=== PATIENT | female | born 1945 | race Caucasian/White ===

== ENCOUNTER 2021-11-22 14:33 | Outpatient (CLI) | payer MEDICARE, BC, SELFPAY ==
[2021-11-22 17:27] LABS: Albumin* 4.1 g/dL (3.3-5.0)
[2021-11-22 17:29] LABS: Cholesterol* 195 mg/dL (90-199)
[2021-11-22 17:30] LABS: Alkaline Phosphatase* 84 U/L (40-150); Aspartate Amino Transferase* 36 U/L (12-35); Bilirubin Direct* 0.1 mg/dL (0.0-0.5); Bilirubin Total* 0.6 mg/dL (0.1-1.5); HDL Cholesterol* 89 mg/dL (>=50); LDL Cholesterol Calculated 86 mg/dL (<100); Total Protein* 6.7 g/dL (6.0-8.3); Triglycerides* 101 mg/dL (40-149)
[2021-11-22 17:31] LABS: Alanine Aminotransferase* 24 U/L (4-35)
== END 2021-11-22 14:34 | disposition home or self-care (01) ==
PROVIDERS: PCP Internal Medicine; Visit Provider Internal Medicine
DX: Z00.00 Encounter for general adult medical examination without abnormal findings (principal); K76.0 Fatty (change of) liver, not elsewhere classified; E78.5 Hyperlipidemia, unspecified; E03.9 Hypothyroidism, unspecified
CPT/HCPCS: 80061; 80076; 84443

== ENCOUNTER 2022-01-08 11:09 | Outpatient (CLI) | payer MEDICARE, BC, SELFPAY | END 2022-01-08 11:10 | disposition home or self-care (01) | LOC: NFLDREF 01-11 10:11 | PROVIDERS: PCP Internal Medicine; Visit Provider Internal Medicine | DX: N39.0 Urinary tract infection, site not specified (principal) | CPT/HCPCS: 87086; 87186 ==

== ENCOUNTER 2022-03-26 12:40 | Outpatient (CLI) | payer MEDICARE, BC, SELFPAY ==
--- NOTE | 2022-03-26 12:50 | CRLHL7_ITS ---
For Patients: As a result of the Century Cures Act, medical imaging exams and procedure reports are released immediately into your electronic medical record. You may view this report before your referring provider. If you have questions, please contact your health care provider. BILATERAL SCREENING MAMMOGRAM WITH COMPUTER-AIDED DETECTION TECHNIQUE: CC and MLO views were obtained. These mammographic images have been obtained using full-field digital technique. These mammographic images were interpreted with the benefit of computer-aided detection. COMPARISON FILM: 10/16/17, 10/19/15, 09/15/14 FINDINGS: The breasts are almost entirely fatty IMPRESSION: There is no radiographic evidence for malignancy. ASSESSMENT: BI-RADS Category 1: Negative RECOMMENDATION: Routine screening mammogram in 1 year. A lay language report of this examination will be provided to the patient. Andrez Al M.D. Diagnostic/Nuclear Medicine Radiologist [email or web address] Transcribed: 2:01 p.m. DW/Dictated by: Andrez Al MD @ 03/27/2022 8:15:00 AM (Electronically Signed)
== END 2022-03-26 12:41 | disposition home or self-care (01) ==
LOC: MAMMO 12:42
PROVIDERS: PCP Internal Medicine; Visit Provider Internal Medicine
DX: Z12.31 Encounter for screening mammogram for malignant neoplasm of breast (principal)
CPT/HCPCS: 77067

== ENCOUNTER 2022-11-21 13:10 | Outpatient (CLI) | payer MEDICARE, BC, SELFPAY | END 2022-11-21 13:11 | disposition home or self-care (01) | LOC: NFLDREF 11-22 05:53 | PROVIDERS: PCP Internal Medicine; Referring Provider Internal Medicine; Visit Provider Internal Medicine | DX: E78.5 Hyperlipidemia, unspecified (principal); E03.9 Hypothyroidism, unspecified; M85.80 Other specified disorders of bone density and structure, unspecified site | CPT/HCPCS: 80061; 82306; 84443 ==

== ENCOUNTER 2024-09-10 15:56 | Outpatient (CLI) | payer BC, SELFPAY | END 2024-09-10 15:57 | disposition home or self-care (01) | PROVIDERS: PCP Internal Medicine; Visit Provider Family Medicine | DX: S39.92XA Unspecified injury of lower back, initial encounter (principal); W19.XXXA Unspecified fall, initial encounter; Y92.009 Unspecified place in unspecified non-institutional (private) residence as the place of occurrence of the external cause | CPT/HCPCS: A0425; A0433 ==

== ENCOUNTER 2024-09-10 16:39 | Emergency (ER) | payer BC, SELFPAY ==
[2024-09-10] VITALS (27 sets, daily range): BP systolic 126–149; BP diastolic 68–90; PULSE 98–115; RESP 6–30; TEMP 36.9; O2SAT 90–100; BMI 32.1
--- OUTSIDE RECORDS SUMMARY | 2024-09-10 16:41 | XMS_ITS | Clinical Summary ---
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 [facility] Allergies No known active allergies Medications atorvastatin (LIPITOR) 20 MG tablet Take 1 Tablet by mouth daily. 1 Active escitalopram oxalate (LEXAPRO) 20 MG tablet Take 1 Tablet by mouth daily. 1 Active levothyroxine (SYNTHROID) 25 MCG tablet Take 1 Tablet by mouth daily. 1 Active omeprazole (PRILOSEC) 20 MG capsule Take 1 Capsule by mouth daily. 1 Active QUEtiapine (SEROQUEL) 25 MG tablet Take 3 Tablets by mouth daily at bedtime. 1 Active traZODone (DESYREL) 50 MG tablet Take 75 mg by mouth daily at bedtime. 1 Active Coenzyme Q10 (COQ-10 OR) Take 1 Tablet by mouth daily. Active B Complex Vitamins (B COMPLEX OR) Take 1 Tablet by mouth daily. Active cholecalciferol (VITAMIN D3) 25 MCG (1000 UT) tablet Take 2,000 Units by mouth daily. Active calcium carbonate 1500 (600 Ca) MG Take 600 mg elemental Ca by mouth two times a day. Active Multiple Vitamins-Mineral s (OCUVITE OR) Take 1 Tablet by mouth daily. Active LORazepam (ATIVAN) 1 MG tabletIndication s:Abnormal involuntary movement Pt to bring with to appt. Do not take prior to arrival. MRI staff will instruct when to take med. 1 Tablet 1 Active BABY ASPIRIN OR 81 mg daily. A ctive Family History Medical History Relation Name Comments Stroke Mother Seizure Disorder Negative Family History Relation Name Status Comments Mother Social History Tobacco Use Types Packs/Day Years Used Date Smoking Tobacco: Never Smokeless Tobacco: Never Alcohol Use Standard Drinks/Week Comments Yes 2 (1 standard drink = 0.6 oz pur e alcohol) Comments Unknown Sex and Gender Information Value Date Recorded Sex Assigned at Not on file Legal Sex Female 5:56 PM CDT Gender Identity Not on file Sexual Orientation Not on file Last Filed Vital Signs Vital Sign Reading Time Taken Comments Blood Pressure 122/88 01/09/2021 3:19 PM FRONT END ASSISTANT Pulse 76 01/09/2021 3:19 PM FRONT END ASSISTANT Temperature - - Respiratory Rate 16 01/09/2021 3:19 PM FRONT END ASSISTANT Oxygen Saturation - - Inhaled Oxygen Concentration - - Weight 80.2 kg (176 lb 12.8 oz) 01/09/2021 3:19 PM FRONT END ASSISTANT Height - - Body Mass Index - - Plan of Treatment Health Maintenance Due Date Last Done Comments Medicare Annual Wellness Visit 1945 Zoster/Shingles Vaccine (1 of 2) 05/17/1993 Dexa 05/17/2008 RSV Vaccine (1 - 1-dose 75+ series) 05/17/2018 DTaP/Tdap/Td Vaccine (2 - Tdap) 04/12/2021 04/12/2011 COVID-19 Vaccine ( season) 2023 01/22/2022, 08/14/2021, 01/19/2021, Additional history exists Influenza Vaccine (#1) 2024 2, 01/19/2021, 12/03/2018, Additional history exists Pneumococcal Vaccine 50+ Yrs Completed 09/09/2014, 02/21/2010 HepA Vaccine Aged Out No longer eligi ble based on patient's age to complete this topic HepB Vaccine Aged Out No longer eligi ble based on patient's age to complete this topic Hib Vaccine Aged Out No longer eligi ble based on patient's age to complete this topic MCV4 Vaccine Aged Out No longer eligi ble based on patient's age to complete this topic Meningococcal B Vaccine Aged Out No l onger eligible based on patient's age to complete this topic Insurance MEDICARE
--- OUTSIDE RECORDS SUMMARY | 2024-09-10 16:41 | XMS_ITS | Clinical Summary ---
Author Organization [facility] Address [address] [place] [id number] Care Team Providers Care Human Services Assistant Name Role Phone Keisha Shin MD Primary Care Prov ider Allergies Active Allergy Reactions Criticality Noted Date Comments Amoxicillin Rash 06/26/2011 Ranitidine Rash 06/26/2011 Medications b complex vitamins (VITAMIN B COMPLEX) capsule Take 1 Tablet by mouth once daily. Active ubidecarenone/vitam in E mixed (COQ10 SG 100 ORAL) Take by mouth. Active mv-mn/om3/dha/epa/f loreta/lut/alirio (OCUVITE ADULT 50 PLUS ORAL) Take by mouth. Active aspirin 81 mg cap Take by mouth. Active levothyroxine (SYNTHROID) 25 mcg tabletIndications:H ypothyroidism (acquired) Take 1 Tablet (25 mcg) by mouth once daily. 90 Tablet 3 4 Active omeprazole (PRILOSEC) 20 mg Delayed-Release capsuleIndications: Chronic GERD Take 1 Capsule (20 mg) by mouth once daily before a meal. 90 Capsule 3 4 Active traZODone (DESYREL) 50 mg tabletIndications:I nsomnia, unspecified type,Recurrent major depressive disorder, in full remission Take 1 and 1/2 tablets by mouth at bedtime 135 Tablet 3 4 Active QUEtiapine (SEROQUEL) 25 mg tabletIndications:D epressive disorder TAKE 3 TABLETS BY MOUTH AT BEDTIMES 270 Tablet 1 5 Active atorvastatin (LIPITOR) 20 mg tabletIndications:H yperlipidemia, unspecified hyperlipidemia type Take 1 Tablet (20 mg) by mouth at bedtime. 90 Tablet 1 5 Active escitalopram oxalate (LEXAPRO) 20 mg tabletIndications:R ecurrent major depressive disorder, in full remission TAKE 1 TABLET BY MOUTH EVERY DAY 90 Tablet 1 5 Active Active Problems Problem Noted Date Diagnosed Date Spells of leg shaking and loss of balance 2023 Overview (11/11/2023): Seen by neurology in 2021 and suspected related to orthostatic hypotension. Had MRI with vasculature variant but no intracranial pathology. Had recommend cardiology referral as well. Age-related osteoporosis wit hout current pathological fracture 11/11/2023 Overview (11/11/2023): Dexa 10/18, repeat in 5y Colonic adenoma 11/11/2023 Overview (11/11/2023): Colonoscopy in 07/2016, repeat in 5y MAFLD (metabolic associated fatty liver disease) 11/11/2023 Hypothyroidism (acquired) 11/11/2023 Fibromyalgia 11/11/2023 History of anxiety 10/14/2017 Mixed hyperlipidemia 09/10/2013 Encounter for long-term (current) use of other m edications 01/09/2009 Depressive disorder, not elsewhere classified Unspecified psychosis 04/14/2007 Immunizations Immunization Administration Dates Next Due COVID-19 vaccine (Avidia NTExajoule 30mcg/0.3mL) PF, MDV 01/19/2021 Influenza, High-dose Inactivated 019,05/24/2016,01/20/2015,2013 Influenza, High-dose Quadriv alent Inactivated 12/03/2022,01/22/2022,01/19/2021 Influenza, IIV3 (Age 6-35 mos) 02/17/2013,2011,02/21/2010 Influenza, Inactivated IIV3 (Age 65+ Years) Preserv Free 11/11/2023 Pneumococcal Poly,23-Valent (Pneumovax) 02/21/2010 Pneumococcal conj 13-Valent (Prevnar 13) 09/09/2014 Tdap 02/12/2023,04/12/2011 Social History Tobacco Use Types Packs/Day Years Used Date Smoking Tobacco: Never Smokeless Tobacco: Never Tobacco Cessation:Counseling Given: Yes Alcohol Use Standard Drinks/Week Comments Yes 0 (1 standard drink = 0.6 oz pur e alcohol) occasionally PHQ-2 Answer Date Recorded PHQ-2 TOTAL SCORE 0 11/11/2023 Social Connections Answer Date Recorded Do you often feel lonely or isolated from those around you? 0 11/11/2023 Financial Resource Strain Answer Date R ecorded Difficulty of Paying Living Expenses 3 08/19/2023 Difficulty of Paying Living Expenses Not on file 08/19/2023 Food Insecurity Answer Date Recorded Do you worry your food will run out before you are able to buy more? 1 11/11/2023 Transportation Needs Answer Date Record ed Does lack of transportation keep you from medica l appointments? 1 11/11/2023 Does lack of transportation keep you from work, meetings or getting things that you need? 1 11/11/2023 Housing Stability Answer Date Recorded What is your housing situation today? 1 11/11/2023 Utilities Answer Date Recorded Do you have trouble paying f or utilities (for example, heat, electricity, water, phone)? 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 Gender Identity Not on file Sexual Orientation Not on file Obstetrics History Last Filed Vital Signs Vital Sign Reading Time Taken Comments Blood Pressure 127/72 11/11/2023 3:18 PM CDT Pulse 76 11/11/2023 3:18 PM CDT Temperature - - Respiratory Rate - - Oxygen Saturation 96% 11/11/2023 3:18 PM CDT Inhaled Oxygen Concentration - - Weight 80.7 kg (178 lb) 11/11/2023 3:18 PM CDT Height 153 cm (5' 0.24) 11/11/2023 3:18 PM CDT Body Mass Index 34.49 11/11/2023 3:18 PM CDT Plan of Treatment Health Maintenance Due Date Last Done Comments Zoster (shingles) series for age 50+ (1 of 2) 05/17/1993 RSV vaccine for adults or (1 - 1-dose 75+ series) 05/17/2018 COVID-19 vaccine series ( season) 2023 02/12/2023, 01/22/2022, 08/14/2021, Additional history exists Influenza Vaccine (#1) 2024 , 12/03/2018, 05/24/2016, Additional history exists BMI (ht and wt on same day) for age 18+ 11/10/2024 11/11/2023, 09/26/2021 Depression screening for age 12+ 11/10/2024 11/11/2023, 09/26/2021, 11/16/2018, Additional history exists Medicare Wellness for age 65+ 11/11/2024 11/11/2023, 10/01/2022 (Completed outside of [facility]) Tetanus booster 02/12/2033 02/12/2023, 06/02 (Completed outside of [facility]), 04/12/2011 DEXA/DXA scan for age 65+ Completed 2011 (Completed outside of [facility]) Pneumococcal series for age 50+ Completed 09/09/2014, 02/21/2010 Hepatitis B series for 19+ Aged Out N o longer eligible based on patient's age to complete this topic Insurance MEDICARE [place] ONLY MEDICARE PART A HB ONLY MEDICARE PART B HB ONLY BLUE ADVANTAGE [place] [place] Care Teams Human Services Assistant Relationship Specialty Start Date End Date Keisha Shin MD [address] [place] [address] PCP - General Family Practice 08/19/23
--- NOTE | 2024-09-10 17:09 | CRLHL7_ITS ---
For Patients: As a result of the Century Cures Act, medical imaging exams and procedure reports are released immediately into your electronic medical record. You may view this report before your referring provider. If you have questions, please contact your health care provider. INDICATION: Fall, injury. TECHNIQUE: CT lumbar spine without contrast. COMPARISON: None. FINDINGS: No acute fracture. Grade 1 anterolisthesis of L4 on L5. L1 and L2 vertebral body hemangiomas. No prevertebral soft tissue hematoma or swelling. No soft tissue abnormality is identified. Multilevel spondylosis. No acute process in the visualized portions of the abdomen. Colonic diverticulosis. IMPRESSION: No acute fracture. Please note that all CT scans at this facility use dose modulation, iterative reconstruction, and/or weight-based dosing when appropriate to reduce radiation dose to as low as reasonably achievable. Dictated by Jaret Hall MD @ 09/10/2024 6:18:31 PM (Electronically Signed)
--- NOTE | 2024-09-10 17:09 | CRLHL7_ITS ---
For Patients: As a result of the Century Cures Act, medical imaging exams and procedure reports are released immediately into your electronic medical record. You may view this report before your referring provider. If you have questions, please contact your health care provider. INDICATION: .fall and injury TECHNIQUE: Head CT without contrast. COMPARISON: None. FINDINGS: Periventricular areas of low attenuation, likely due to chronic small vessel ischemic changes. Generalized volume loss. Atherosclerosis. No intracranial hemorrhage. No discrete mass or mass effect. There is no midline shift. The basilar cisterns are patent. No hydrocephalus. The spencer-white matter interface is otherwise preserved. No acute osseous abnormality. No extracalvarial soft tissue abnormality. The mastoid air cells are clear. The paranasal sinuses are well-aerated. The visualized portions of the orbits and globes are unremarkable. IMPRESSION: No acute intracranial process per unenhanced head CT. Please note that all CT scans at this facility use dose modulation, iterative reconstruction, and/or weight-based dosing when appropriate to reduce radiation dose to as low as reasonably achievable. Dictated by Jaret Hall MD @ 09/10/2024 6:08:29 PM (Electronically Signed)
--- NOTE | 2024-09-10 17:09 | CRLHL7_ITS ---
For Patients: As a result of the Cures Act, medical imaging exams and procedure reports are released immediately into your electronic medical record. You may view this report before your referring provider. If you have questions, please contact your health care provider. Indication: fall and injury bilateral groin and hip pain Technique: July 2021 Comparison: Lumbar same day Findings: Subcentimeter sclerotic focus in the left femoral head, statistically a bone island. Lumbar spondylosis. Bony mineralization is age-appropriate. No acute displaced fracture or malalignment. Visualized portions the pelvis show no acute process. Colonic diverticulosis. Impression: No acute displaced fracture or malalignment. Please note that all CT scans at this facility use dose modulation, iterative reconstruction, and/or weight-based dosing when appropriate to reduce radiation dose to as low as reasonably achievable. Dictated by Jaret Hall MD @ 09/10/2024 6:23:33 PM (Electronically Signed)
--- NOTE | 2024-09-10 17:10 | CRLHL7_ITS ---
For Patients: As a result of the Cures Act, medical imaging exams and procedure reports are released immediately into your electronic medical record. You may view this report before your referring provider. If you have questions, please contact your health care provider. INDICATION: .fall and injury, neck pain TECHNIQUE: CT cervical spine without contrast. COMPARISON: None. FINDINGS: No acute fracture. No listhesis. Bony mineralization is age appropriate. No prevertebral soft tissue hematoma or swelling. No soft tissue abnormality is identified. Multilevel spondylosis. No pathologically enlarged lymph nodes. Thyroid is normal. Lung apices are clear. IMPRESSION: Unremarkable cervical spine CT. Please note that all CT scans at this facility use dose modulation, iterative reconstruction, and/or weight-based dosing when appropriate to reduce radiation dose to as low as reasonably achievable. Dictated by Jaret Hall MD @ 09/10/2024 6:12:53 PM (Electronically Signed)
[2024-09-10 17:31] LABS: Hematocrit 41.7 % (33.0-51.0); Hemoglobin* 14.3 gm/dL (12.0-16.0); Immature Granulocytes Abs Auto 0.01 K/uL (0.00-0.30); Immature Granulocytes Pct Auto 0.1 %; Mean Corpuscular HGB Conc 34 gm/dL (32-36); Mean Corpuscular Hemoglobin 33 pg (26-34); Mean Corpuscular Volume 95 fL (80-100); RDW Coefficient of Variation % 13.0 % (11.5-15.5); Red Blood Count 4.37 m/uL (4.00-5.20); White Blood Count* 9.11 K/uL (4.50-11.00)
[2024-09-10 17:36] LABS: Lymphocytes Absolute Auto 0.50 K/uL (0.90-2.90); Slide Review Reflex No
--- NOTE | 2024-09-10 17:37 | ED.FALL ---
HPI - Fall General Date Seen: 09/10/24 Chief Complaint: Fall/Minor Trauma Stated Complaint: Fall Time Seen by Provider: 09/10/24 16:53 Source: patient, family, EMS, RN notes reviewed and old records reviewed Mode of arrival: EMS Limitations: no limitations History of Present Illness HPI Narrative: Patient is an 79-year-old female who fell at her residence, she shares with her son at approximately 10:30 a.m. last night she was on the floor crawling around looking for the foam before she was cauda able to call 911 this afternoon, she complains of back and neck pain for EMS, and some bruising on her limbs, she was given on route here IV fentanyl 100 mcg 1.25 mg of droperidol, and 4 mg of Zofran. Says she feels pretty good rate now, she says she can not really remember what exactly happened she does not think she lost consciousness. She says she falls all the time is been worked up with Neurology for this, and in the reviewed find a reason for her falls. She denies use of alcohol or drugs she denies any chest pain shortness of breath or rapid heart rate leading up to this, denies any leg swelling, complaint: fall Onset (ago): hour(s) Fall from: standing Fall witnessed: no Place fall occurred: home Loss of consciousness: No Prolonged down time: yes Symptoms prior to fall: none Context: history of frequent falls Location of injury: head, neck, back and pelvis Severity: moderate Quality: other Associated symptoms (after fall): denies Related Data Home Medications ?Medication ?Instructions ?Recorded ?Confirmed B-complex with vitamin C 3 tab PO QDAY 09/25/21 12/03/22 aspirin 81 mg chewable tablet 81 mg PO QDAY 09/25/21 12/03/22 calcium 600 mg-D3 800 unit-mag 40 1 tab PO BID 09/25/21 12/03/22 qw-wnyb-mfeb-juanita-boron chew tablet (Caltrate 600-D Plus Minerals) coenzyme Q10 100 mg capsule 100 mg PO QDAY 09/25/21 12/03/22 escitalopram oxalate 20 mg tablet 20 mg PO QDAY 09/25/21 12/03/22 (Lexapro) quetiapine 25 mg tablet (Seroquel) 75 mg PO QPM 09/25/21 12/03/22 Previous Rx's ?Medication ?Instructions ?Recorded peg 3350-electrolytes 236 240 ml PO ONCE #4,000 mL 01/03/22 gram-22.74 gram-6.74 gram-5.86 gram solution (Golytely) trazodone 50 mg tablet 25 - 50 mg (0.5 - 1 x 50 mg) PO 02/12/22 QHS PRN insomnia #90 tabs atorvastatin 20 mg tablet 20 mg PO DAILY #90 tabs 12/03/22 levothyroxine 25 mcg tablet 25 mcg PO QDAY #90 tabs 12/03/22 omeprazole 20 mg capsule,delayed 20 mg PO QDAY #90 caps 12/03/22 release peg 3350-electrolytes 236 240 ml PO Q10M #4,000 mL 12/04/22 gram-22.74 gram-6.74 gram-5.86 gram solution (Golytely) Walker- 2 Wheels #1 ea 09/10/24 Allergies Allergy/AdvReac Type Severity Reaction Status Date / Time penicillin V Allergy Severe Hives Verified 12/03/22 15:07 ranitidine Allergy Severe itching Verified 12/03/22 15:07 amoxicillin Allergy Intermediate itchging Verified 12/03/22 15:07 dust mites Allergy Uncoded 12/03/22 15:07 Review of Systems Status of ROS: Reports: 10 or more systems reviewed and unremarkable except as noted in History and below [facility] Surgical History (Updated 11/22/21 @ 11:42 by Keisha Rea MD) History of laparoscopic cholecystectomy ?Z90.49 - Acquired absence of other specified parts of digestive tract (ICD-10) Social History (Updated 12/03/22 @ 16:27 by Sinai Espinosa ~ [facility]) What is your current living situation?: I presently have a place to live Problems where you live: no known problems In the past 12 months, utilities in danger of being shut off: no In past 12 months, lack of transportation kept you from medical appts, meetings, work, or getting things needed for daily living: declined to answer In the past 12 mos, have been you worried that your food would run out before you had money to buy more?: never true In the past 12 mos, the food you bought just didn't last and you didn't have money to buy more?: never true Smoking Status: Never smoker How often do you have a drink containing alcohol: 4 or more times a week How many standard drinks containing alcohol do you have on a typical day: 1 or 2 How often do you have six or more drinks on one occasion: Never AUDIT-C Alcohol total score: 4 Non-prescribed substance use: denies use How often does anyone, including family, friends and others, physically hurt you: never How often does anyone, including family, friends and others, insult or talk down to you: never How often does anyone, including family, friends and others, threaten you with harm: never How often does anyone, including family, friends and others, scream or curse at you: never Exam Narrative: Exam Narrative: On examination in stabilization room 2, she is in no apparent distress she is alert to person place and she knows she is at the hospital, she has a little bit forgetful, this may be a combination of her falls, chronic condition or the fact that her med she was given medication. Her pupils equal round reactive to light, she has right-sided conjunctivitis, with with discharge, no periorbital swelling, her TMs bilaterally are normal her neck is supple, oropharynx is normal, no palpable bubble pain noted on her neck, on her paraspinal muscle she has a little sore. I do not see any evidence of any hematomas over her neck, bruising noted. Negative Cantrell sign, her chest is good air entry bilateral with no wheezing crackles noted no splinting heart sounds no clicks murmurs or gallops her abdomen is soft and obese there is no guarding no organomegaly bowel sounds are normal. Her back shows some mild tenderness to palpation over her lower back with there is no bruising noted, she is tender and sore with any sort of flexion of her hips bilaterally, although surprising I am able to externally rotate her hips, without a lot of pain. Distal pulses are normal, she has some deformities of her toes bilaterally non Prograf [place], her pulses are normal. With her upper lower extremities, she has some bruising noted around her knees, and her elbows bilaterally I suspect from scooting around on her all 4s. Const: Vital Signs, click to edit/add: Vital Signs - 24 hr 09/10/24 16:57 09/10/24 17:04 09/10/24 17:14 Temperature 98.5 F Pulse Rate 103 H Pulse Rate [Pulse Oximeter] 98 Respiratory Rate 20 23 Blood Pressure 145/88 H Blood Pressure [Ri ght Upper Arm] 126/68 Pulse Oximetry 90 93 92 Oxygen Delivery Me thod Room Air Room Air Oxygen Flow Rate 09/10/24 17:49 09/10/24 18:00 09/10/24 18:02 Temperature Pulse Rate 105 H 103 H Pulse Rate [Pulse Oximeter] Respiratory Rate 11 L 13 14 Blood Pressure 134/80 Blood Pressure [Ri ght Upper Arm] Pulse Oximetry 98 100 Oxygen Delivery Me thod Oxygen Flow Rate 09/10/24 18:15 09/10/24 18:34 09/10/24 18:35 Temperature Pulse Rate 107 H 115 H 115 H Pulse Rate [Pulse Oximeter] Respiratory Rate 10 L 10 L 12 Blood Pressure 149/83 H Blood Pressure [Ri ght Upper Arm] Pulse Oximetry 98 92 92 Oxygen Delivery Me thod Nasal Cannula Oxygen Flow Rate 2 Documenting provider has reviewed patient's vital signs: yes Course Course ED Course: Patient has done well we gave her some more ibuprofen for discomfort, we will get her up and walk her, her CTs are negative. She has a history of this in the past she tells me, of these falls, having these spells. She is followed by Neurology, I do have some concerns that possibly this is cardiac in do think she would benefit from a Zio patch. All of her labs are negative with exception of her CK was elevated at 2700, we generally only worry about renal is some deficiency secondary to this over 5000, we did give her some fluids here. If she is able to walk she can go home at this point. She is able ambulate fine with a walker in fact she preferred this. Would like this option at home, I did discuss with her and her son, they felt that she was unable to go home we could admit her to observation status but they think that she can go and try at home, I would also had some concerns that her syncope/spells, could be related to heart related concerns and she will wear the Zio patch in returned as directed. She may need to follow-up with Cardiology. We talked about pain medication use of Tylenol and ibuprofen, and fluids. She does not qualify again for hospitalization secondary to rhabdo she is not over 5000. Oral fluids is all she needs. She was comfortable with this plan. Vital Signs Vital signs: Initial Vital Signs Temperature 98.5 F 09/10/24 16:57 Temperature Source Temporal Artery Scan 09/10/24 16:57 Pulse Rate 98 09/10/24 16:57 Respiratory Rate 20 09/10/24 16:57 Blood Pressure 126/68 09/10/24 16:57 Blood Pressure Mean 87 09/10/24 16:57 Blood Pressure Position Supine 09/10/24 16:57 Pulse Oximetry 90 09/10/24 16:57 Oxygen Delivery Method Room Air 09/10/24 16:57 Vital Signs Temperature 98.5 F 09/10/24 16:57 Pulse Rate 98 09/10/24 16:57 Respiratory Rate 20 09/10/24 16:57 Blood Pressure 126/68 09/10/24 16:57 Pulse Oximetry 90 09/10/24 16:57 Oxygen Delivery Method Room Air 09/10/24 16:57 Temperature 98.5 F 09/10/24 16:57 Pulse Rate 115 H 09/10/24 18:35 Respiratory Rate 12 09/10/24 18:35 Blood Pressure 149/83 H 09/10/24 18:35 Pulse Oximetry 92 09/10/24 18:35 Oxygen Delivery Method Nasal Cannula 09/10/24 18:35 Oxygen Flow Rate 2 09/10/24 18:35 Medications Administered Medications: Discontinued Medications Generic Name Dose Route Start Last Admin Trade Name Freq PRN Reason Stop Dose Admin Ibuprofen 600 mg 09/10/24 19:11 09/10/24 19:17 Ibuprofen 200 Mg Tablet PO 09/10/24 19:12 600 mg ONCE ONE Administration MDM - Fall MDM Narrative Medical decision making narrative: Life-threatening differential diagnosis is considered include: Subarachnoid hemorrhage, subdural hemorrhage, epidural hemorrhage. Other differential diagnosis considered include concussion, closed head injury, or neck fracture. Life-threatening differential diagnosis considered include stroke, coronary artery disease, pneumonia, and heart failure. Other differential diagnosis include but are not limited to electrolyte imbalances, anemia, medication reactions, and urinary tract infection I do think that this likely is more chronic her issues although she may have early injured herself this time. We will do CTs of her head neck lower lumbar spine and pelvis, I will get laboratory tests tests including a CK EKG and troponin. If she is able to walk around after this, she likely can go home, I will also peruse or chart. Differential Diagnosis Differential diagnosis: Likely syncope, concussion with loss of consciousness and concussion without loss of consciousness Medical Records Attestation: I reviewed the patient's medical records. Lab Data Attestation: I reviewed the patient's lab results. Labs: Lab Results 09/10/24 09/10/24 09/10/24 Range/Units 17:25 17:27 19:56 WBC 9.11 (4.50-11.00) K/uL RBC 4.37 (4.00-5.20) m/uL Hgb 14.3 (12.0-16.0) gm/dL Hct 41.7 (33.0-51.0) % MCV 95 (80-100) fL MCH 33 (26-34) pg MCHC 34 (32-36) gm/dL RDW Coeff of [place] 13.0 (11.5-15.5) % Plt Count 248 (140-440) K/uL Neut % (Auto) 89.8 H (42.0-72.0) % Lymph % (Auto) 5.7 L (20-44) % [place] % (Auto) 4.2 (0.0-11.0) % Eos % (Auto) 0.0 (0.0-7.0) % Baso % (Auto) 0.2 (0.0-3.0) % Neut # (Auto) 8.20 H (1.7-7.0) K/uL Lymph # (Auto) 0.50 L (0.90-2.90) K/uL [place] # (Auto) 0.40 (0.00-0.90) K/UL Eos # (Auto) 0.00 (0.00-0.50) K/uL Baso # (Auto) 0.02 (0.00-0.30) K/uL Abs Immat Gran (auto) 0.01 (0.00-0.30) K/uL Imm/Tot Granulo (auto) 0.1 % Sodium 136 (135-149) mmol/L Potassium 4.1 (3.6-5.1) mmol/L Chloride 100 (96-114) mmol/L Carbon Dioxide 28 (20-32) mmol/L Anion Gap 8 (7-15) mEq/L BUN 15 (7-30) mg/dL Creatinine 0.6 (0.5-1.5) mg/dL Estimated Creat Clear 33.29 Estimated GFR 90 ml/min Glucose 119 H (60-115) mg/dL Calcium 9.9 (8.4-10.6) mg/dL Magnesium 1.5 (1.5-2.6) mg/dL Total Creatine Kinase 2432 H (41-117) U/L Urine Color Yellow (Yellow) Urine Appearance Clear (Clear) Urine pH 5.5 (5.0-8.5) Ur Specific [place] <= 1.005 (1.000-1.030) Urine Protein Negative (Negative) Urine Glucose (UA) Negative (Negative) Urine Ketones Negative (Negative) Urine Blood Negative (Negative) Urine Nitrite Negative (Negative) Urine Bilirubin Negative (Negative) Urine Urobilinogen 0.2 (0.2-1.0) Ur Leukocyte Esterase 1+ A (Negative) Urine RBC 0-2 (0-2) Urine WBC 2-5 (0-5) Ur Squamous Epith Cells None (None-Few) Urine Bacteria Few A (None) POC Troponin I 0.00 L (0.01-0.04) ng/ml Imaging Data CT scan - head: Radiologist's impression: [place] [address] Diagnostic Imaging Report Patient: Lolly Chavez MR#: [id number] : 1945 Acct:[id number] Loc: ED Service Date: 09/10/[address]: Ordering Physician: Nirav Babb M.D. Date of Service: 09/10/24 Procedure(s): CT cervical spine wo con Accession Number(s): [id number] cc: Keisha Rea M.D.; Nirav Babb M.D.~ For Patients: As a result of the 21st Century Cures Act, medical imaging exams and procedure reports are released immediately into your electronic medical record. You may view this report before your referring provider. If you have questions, please contact your health care provider. INDICATION: .fall and injury, neck pain TECHNIQUE: CT cervical spine without contrast. COMPARISON: None. FINDINGS: No acute fracture. No listhesis. Bony mineralization is age appropriate. No prevertebral soft tissue hematoma or swelling. No soft tissue abnormality is identified. Multilevel spondylosis. No pathologically enlarged lymph nodes. Thyroid is normal. Lung apices are clear. IMPRESSION: Unremarkable cervical spine CT. Please note that all CT scans at this facility use dose modulation, iterative reconstruction, and/or weight-based dosing when appropriate to reduce radiation dose to as low as reasonably achievable. Dictated by Jaret Hall MD @ 09/10/2024 6:12:53 PM (Electronically Signed)[address] [address] Diagnostic Imaging Report Patient: Lolly Chavez MR#: [id number] : 1945 Acct:[id number] Loc: ED Service Date: 09/10/[address]: Ordering Physician: Nirav Babb M.D. Date of Service: 09/10/24 Procedure(s): CT pelvis wo con Accession Number(s): [id number] cc: Keisha Rea M.D.; Nirav Babb M.D.~ For Patients: As a result of the Cures Act, medical imaging exams and procedure reports are released immediately into your electronic medical record. You may view this report before your referring provider. If you have questions, please contact your health care provider. Indication: fall and injury bilateral groin and hip pain Technique: July 2021 Comparison: Lumbar same day Findings: Subcentimeter sclerotic focus in the left femoral head, statistically a bone island. Lumbar spondylosis. Bony mineralization is age-appropriate. No acute displaced fracture or malalignment. Visualized portions the pelvis show no acute process. Colonic diverticulosis. Impression: No acute displaced fracture or malalignment. Please note that all CT scans at this facility use dose modulation, iterative reconstruction, and/or weight-based dosing when appropriate to reduce radiation dose to as low as reasonably achievable. Dictated by Jaret Hall MD @ 09/10/2024 6:23:33 PM (Electronically Signed)[address] [address] Diagnostic Imaging Report Patient: Lolly Chavez MR#: [id number] : 1945 Acct:[id number] Loc: ED Service Date: 09/10/[address]: Ordering Physician: Nirav Babb M.D. Date of Service: 09/10/24 Procedure(s): CT lumbar spine wo con Accession Number(s): [id number] cc: Keisha Rea M.D.; Nirav Babb M.D.~ For Patients: As a result of the Cures Act, medical imaging exams and procedure reports are released immediately into your electronic medical record. You may view this report before your referring provider. If you have questions, please contact your health care provider. INDICATION: Fall, injury. TECHNIQUE: CT lumbar spine without contrast. COMPARISON: None. FINDINGS: No acute fracture. Grade 1 anterolisthesis of L4 on L5. L1 and L2 vertebral body hemangiomas. No prevertebral soft tissue hematoma or swelling. No soft tissue abnormality is identified. Multilevel spondylosis. No acute process in the visualized portions of the abdomen. Colonic diverticulosis. IMPRESSION: No acute fracture. Please note that all CT scans at this facility use dose modulation, iterative reconstruction, and/or weight-based dosing when appropriate to reduce radiation dose to as low as reasonably achievable. Dictated by Jaret Hall MD @ 09/10/2024 6:18:31 PM (Electronically Signed)[place] [address] Diagnostic Imaging Report Patient: Lolly Chavez MR#: [id number] : 1945 Acct:[id number] Loc: ED Service Date: 09/10/[address]: Ordering Physician: Nirav Babb M.D. Date of Service: 09/10/24 Procedure(s): CT head/brain wo con Accession Number(s): [id number] cc: Keisha Rea M.D.; Nirav Babb M.D.~ For Patients: As a result of the Cures Act, medical imaging exams and procedure reports are released immediately into your electronic medical record. You may view this report before your referring provider. If you have questions, please contact your health care provider. INDICATION: .fall and injury TECHNIQUE: Head CT without contrast. COMPARISON: None. FINDINGS: Periventricular areas of low attenuation, likely due to chronic small vessel ischemic changes. Generalized volume loss. Atherosclerosis. No intracranial hemorrhage. No discrete mass or mass effect. There is no midline shift. The basilar cisterns are patent. No hydrocephalus. The spencer-white matter interface is otherwise preserved. No acute osseous abnormality. No extracalvarial soft tissue abnormality. The mastoid air cells are clear. The paranasal sinuses are well-aerated. The visualized portions of the orbits and globes are unremarkable. IMPRESSION: No acute intracranial process per unenhanced head CT. Please note that all CT scans at this facility use dose modulation, iterative reconstruction, and/or weight-based dosing when appropriate to reduce radiation dose to as low as reasonably achievable. Dictated by Jaret Hall MD @ 09/10/2024 6:08:29 PM (Electronically Signed) ECG Data Attestation: I personally reviewed and interpreted this ECG as follows: ECG interpretation date: 09/10/24 Interpretation: EKG shows mild sinus tachycardia with occasional PACs left axis deviation, no acute ST wave changes, QRS 96, QT 368 and QTC is 482. Discharge Plan Discharge Clinical Impression: Fall, Elevated CK, Back pain Patient Disposition: Home w/ Parent or Adult Condition: Improved Instructions: Fall Prevention for Older Adults (ED), Back Pain (ED) Additional Instructions: Home, rest, follow-up with primary care to check on your Zio patch, I also noted on your last visit that her doctor wanted you to follow-up with neurology again for these spells they do occur. Return here if ongoing falls issues, inability to get up, or other issues. Activity Level: Light activity Discharge Diet: Regular Prescriptions: New (DME) Walker- 2 Wheels Misc See Rx Instructions .Route Qty: 1 0RF Rx Instructions: As directed No Action levothyroxine 25 mcg tablet 25 mcg PO QDAY Qty: 90 3RF atorvastatin 20 mg tablet 20 mg PO DAILY Qty: 90 3RF omeprazole 20 mg capsule,delayed release(DR/EC) 20 mg PO QDAY Qty: 90 3RF coenzyme Q10 100 mg capsule 100 mg PO QDAY aspirin 81 mg tablet,chewable 81 mg PO QDAY Caltrate 600-D Plus Minerals 600 mg calcium- 800 unit-40 mg tablet,chewable 1 tab PO BID B-complex with vitamin C Tablet 3 tab PO QDAY escitalopram oxalate [Lexapro] 20 mg tablet 20 mg PO QDAY quetiapine [Seroquel] 25 mg tablet 75 mg PO QPM peg 3350-electrolytes [Golytely] 236-22.74-6.74 -5.86 gram recon soln 240 ml PO ONCE Qty: 4000 0RF Rx Instructions: until fecal effluent is clear trazodone 50 mg tablet 25 - 50 mg PO QHS PRN (Reason: insomnia) Qty: 90 2RF peg 3350-electrolytes [Golytely] 236-22.74-6.74 -5.86 gram recon soln 240 ml PO Q10M Qty: 4000 0RF Rx Instructions: until fecal effluent is clear Follow Up/Referrals: Keisha Rea MD [Primary Care Provider, Internal Medicine] Stand Alone Forms: MyHealth Info Instructions
[2024-09-10 17:45] LABS: Troponin, Point-of-Care* 0.00 ng/ml (0.01-0.04)
[2024-09-10 17:46] LABS: Chloride* 100 mmol/L (96-114); Potassium* 4.1 mmol/L (3.6-5.1); Sodium* 136 mmol/L (135-149)
[2024-09-10 17:48] LABS: Blood Urea Nitrogen* 15 mg/dL (7-30); Creatinine* 0.6 mg/dL (0.5-1.5); Est. Creatinine Clearance* 33.29; Estimated Glomerular Filt Rate 90 ml/min
[2024-09-10 17:49] LABS: Anion Gap 8 mEq/L (7-15); Calcium* 9.9 mg/dL (8.4-10.6); Carbon Dioxide* 28 mmol/L (20-32); Glucose* 119 mg/dL (60-115)
[2024-09-10 17:56] LABS: Creatine Kinase* 2432 U/L (41-117)
[2024-09-10] MEDS: IBUPROFEN 200 MG TABLET 600 MG PO (19:17)
[2024-09-10 20:25] LABS: Appearance Urine Clear (Clear)
== END 2024-09-10 21:50 | disposition home or self-care (01) ==
PROVIDERS: Emergency Provider Family Medicine; PCP Internal Medicine
DX: M54.9 Dorsalgia, unspecified (principal); R74.8 Abnormal levels of other serum enzymes; W19.XXXA Unspecified fall, initial encounter
CPT/HCPCS: 36415; 70450; 72125; 72131; 72192; 80048; 81001; 82550; 83735; 84484; 85025; 87086; 93005; 93246; 94761; 99284; 99285; A9270